=== PATIENT | female | born 1955 | race Two or more races ===

== ENCOUNTER 2018-02-17 07:29 | Outpatient (CLI) | payer OTHER | END 2018-02-17 07:40 | disposition home or self-care (01) | LOC: LAB 07:29 | DX: I10 Essential (primary) hypertension (principal); R82.79 Other abnormal findings on microbiological examination of urine; E11.9 Type 2 diabetes mellitus without complications; E03.9 Hypothyroidism, unspecified; E78.2 Mixed hyperlipidemia; N39.0 Urinary tract infection, site not specified; M81.0 Age-related osteoporosis without current pathological fracture ==

== ENCOUNTER 2019-06-17 06:43 | Outpatient (CLI) | payer OTHER | END 2019-06-17 07:14 | disposition home or self-care (01) | LOC: LAB 06:43 | DX: I10 Essential (primary) hypertension (principal); E11.9 Type 2 diabetes mellitus without complications; E03.8 Other specified hypothyroidism; E78.2 Mixed hyperlipidemia ==

== ENCOUNTER 2019-06-17 07:47 | Outpatient (CLI) | payer OTHER | END 2019-06-17 07:56 | disposition home or self-care (01) | LOC: MAMO-SONO 07:47 | DX: N63.11 Unspecified lump in the right breast, upper outer quadrant (principal) ==

== ENCOUNTER 2019-06-18 13:11 | Outpatient (CLI) | payer OTHER | END 2019-06-18 13:33 | disposition home or self-care (01) | LOC: NUCLEAR 13:11 | DX: M81.0 Age-related osteoporosis without current pathological fracture (principal) ==

== ENCOUNTER → 2019-06-30 15:39 | Outpatient (CLI) | payer OTHER | END | disposition home or self-care (01) | LOC: LAB 15:39 | DX: M81.0 Age-related osteoporosis without current pathological fracture (principal); M19.91 Primary osteoarthritis, unspecified site ==

== ENCOUNTER 2023-12-31 08:49 | Outpatient (CLI) | payer OTHER ==
[2023-12-31 10:43] LABS: HEMATOCRIT 36.4 % (36.0-45.00); HEMOGLOBIN 12.3 g/dL (12.0-15.00); MEAN CELL VOLUME 83.1 fL (80.00-100.00); MEAN CORPUSCULAR HEMOGLOBIN 28.1 pg (27.00-32.0); MEAN CORPUSCULAR HGB CONC 33.8 g/dl (32.0-36.0); PLATELET COUNT 262 K/uL (150-450); RED BLOOD COUNT 4.38 M/uL (4.00-6.00); RED CELL DISTRIBUTION WIDTH 14.4 % (11.5-14.5)
[2023-12-31 10:50] LABS: PH,URINE 5.5 (5.0-8.0); URINE APPEARANCE Clear; URINE BILIRRUBIN Negative (NEGATIVE); URINE BLOOD Negative; URINE COLOR Yellow; URINE GLUCOSE Negative (NEGATIVE); URINE LEUKOCYTE Trace; URINE NITRATE Negative; URINE PROTEIN Negative (NEGATIVE)
[2023-12-31 10:54] LABS: URINE BACTERIA 256.9 uL (0.0-1933); URINE EPITHELIAL CELLS 25.9 uL (0.0-38.8); URINE WBC 15.4 uL (0.0-23.2)
[2023-12-31 11:20] LABS: ALBUMIN 3.9 gm/dL (3.4-5.0); BILIRUBIN TOTAL 1.07 mg/dL (0.3-1.2); CALCIUM 9.4 mg/dL (8.5-10.1); CHOL HDL RATIO 3.6 (0-5.0); CREATININE SERUM 0.82 mg/dL (0.55-1.02); GFR 69.32; GLOBULINA 3.6 G/DL (2.4-3.5); POTASSIUM 4.38 mEq/L (3.5-5.1); T4 TOTAL 10.85 UG/DL (4.8-13.9); TOTAL PROTEIN 7.5 gm/dL (6.4-8.2); TSH 0.992 uIU/mL (0.358-3.74)
[2023-12-31 13:23] LABS: T3 TOTAL 0.955 ng/ml (0.846-2.02); VITAMIN D3 25 HYDROXY 81.72 ng/ml (30-120)
[2024-01-01 07:12] LABS: INSULIN LEVELS 7.8 uIU/mL (2.6-24.9)
[2024-01-01 09:07] LABS: CA 125 13.8 U/mL (0.0-38.1); CA 19-9 < 2 U/mL (0-35)
== END 2023-12-31 08:50 | disposition home or self-care (01) ==
LOC: LAB 08:49
PROVIDERS: ATTEND Internal Medicine Cardiovascular Disease
DX: I10 Essential (primary) hypertension (principal); E11.9 Type 2 diabetes mellitus without complications; E03.9 Hypothyroidism, unspecified; E78.2 Mixed hyperlipidemia; E55.9 Vitamin D deficiency, unspecified; Z12.11 Encounter for screening for malignant neoplasm of colon; D64.0 Hereditary sideroblastic anemia; K85.90 Acute pancreatitis without necrosis or infection, unspecified; Z12.31 Encounter for screening mammogram for malignant neoplasm of breast

== ENCOUNTER 2024-01-03 07:05 | Outpatient (CLI) | payer OTHER ==
[2024-01-03 09:40] LABS: ob NEGATIVE (NEGATIVE)
== END 2024-01-03 07:06 | disposition home or self-care (01) ==
LOC: LAB 07:05
PROVIDERS: ATTEND Internal Medicine Cardiovascular Disease
DX: I10 Essential (primary) hypertension (principal); E11.9 Type 2 diabetes mellitus without complications; E03.9 Hypothyroidism, unspecified; E78.2 Mixed hyperlipidemia; E55.9 Vitamin D deficiency, unspecified; Z12.11 Encounter for screening for malignant neoplasm of colon; D64.0 Hereditary sideroblastic anemia; K85.90 Acute pancreatitis without necrosis or infection, unspecified

== ENCOUNTER 2024-01-03 09:53 | Outpatient (CLI) | payer OTHER | END 2024-01-03 10:02 | disposition home or self-care (01) | LOC: MAMO-SONO 09:53 | PROVIDERS: ATTEND Internal Medicine Cardiovascular Disease | DX: N60.11 Diffuse cystic mastopathy of right breast (principal); N60.12 Diffuse cystic mastopathy of left breast; Z12.31 Encounter for screening mammogram for malignant neoplasm of breast ==

== ENCOUNTER → 2024-04-14 08:42 | Outpatient (CLI) | payer OTHER ==
[2024-04-14 09:43] LABS: HEMATOCRIT 36.7 % (36.0-45.00); HEMOGLOBIN 12.4 g/dL (12.0-15.00); MEAN CELL VOLUME 84.1 fL (80.00-100.00); MEAN CORPUSCULAR HEMOGLOBIN 28.4 pg (27.00-32.0); MEAN CORPUSCULAR HGB CONC 33.8 g/dl (32.0-36.0); PLATELET COUNT 336 K/uL (150-450); RED BLOOD COUNT 4.36 M/uL (4.00-6.00); RED CELL DISTRIBUTION WIDTH 14.6 % (11.5-14.5)
[2024-04-14 10:04] LABS: PH,URINE 5.5 (5.0-8.0); URINE APPEARANCE Cloudy; URINE BILIRRUBIN Negative (NEGATIVE); URINE BLOOD Negative; URINE COLOR Dark Yellow; URINE GLUCOSE Negative (NEGATIVE); URINE LEUKOCYTE Small; URINE NITRATE Negative; URINE PROTEIN 30 (NEGATIVE)
[2024-04-14 10:08] LABS: URINE BACTERIA 4729.9 uL (0.0-1933); URINE EPITHELIAL CELLS 114.7 uL (0.0-38.8); URINE RBC 3.6 uL (0.0-20.8)
[2024-04-14 10:09] LABS: MYCOPLASMA PNEUMONIAE IGM NON REACTIVE (NO REACTIVE)
[2024-04-14 10:25] LABS: URINE MUCUS HEAVY
[2024-04-14 10:27] LABS: CALCIUM 9.4 mg/dL (8.5-10.1); CREATININE SERUM 0.79 mg/dL (0.55-1.02); GFR 72.37; POTASSIUM 4.18 mEq/L (3.5-5.1)
== END | disposition home or self-care (01) ==
LOC: LAB 08:42
PROVIDERS: ATTEND Internal Medicine Cardiovascular Disease
DX: E11.9 Type 2 diabetes mellitus without complications (principal); E78.2 Mixed hyperlipidemia; I10 Essential (primary) hypertension; J11.1 Influenza due to unidentified influenza virus with other respiratory manifestations; A49.3 Mycoplasma infection, unspecified site; Z20.822 Contact with and (suspected) exposure to COVID-19

== ENCOUNTER 2024-08-11 06:15 | Outpatient (CLI) | payer OTHER ==
[2024-08-11 07:00] LABS: PH,URINE 6.5 (5.0-8.0); URINE APPEARANCE Clear; URINE BILIRRUBIN Negative (NEGATIVE); URINE BLOOD Negative; URINE COLOR Yellow; URINE GLUCOSE Negative (NEGATIVE); URINE KETONE Negative (NEGATIVE); URINE LEUKOCYTE Large; URINE NITRATE Negative; URINE PROTEIN Trace (NEGATIVE)
[2024-08-11 07:02] LABS: URINE BACTERIA 588.3 uL (0.0-1933); URINE EPITHELIAL CELLS 48.6 uL (0.0-38.8)
[2024-08-11 07:14] LABS: HEMATOCRIT 33.2 % (36.0-45.00); HEMOGLOBIN 11.4 g/dL (12.0-15.00); MEAN CELL VOLUME 82.2 fL (80.00-100.00); MEAN CORPUSCULAR HEMOGLOBIN 28.1 pg (27.00-32.0); MEAN CORPUSCULAR HGB CONC 34.2 g/dl (32.0-36.0); PLATELET COUNT 286 K/uL (150-450); RED BLOOD COUNT 4.04 M/uL (4.00-6.00); RED CELL DISTRIBUTION WIDTH 14.7 % (11.5-14.5)
[2024-08-11 07:39] LABS: URINE CAST 0.15 uL (0.0-1.40); URINE RBC 1.5 uL (0.0-20.8)
[2024-08-11 08:06] LABS: ALBUMIN 3.4 gm/dL (3.4-5.0); BILIRUBIN TOTAL 0.63 mg/dL (0.3-1.2); CALCIUM 8.9 mg/dL (8.5-10.1); CHOL HDL RATIO 3.1 (0-5.0); CREATININE SERUM 0.92 mg/dL (0.55-1.02); GFR 60.7; GLOBULINA 3.4 G/DL (2.4-3.5); POTASSIUM 4.25 mEq/L (3.5-5.1); T4 TOTAL 9.29 UG/DL (4.8-13.9); TOTAL PROTEIN 6.8 gm/dL (6.4-8.2); TSH 2.13 uIU/mL (0.358-3.74)
[2024-08-11 13:37] LABS: T3 TOTAL 0.987 ng/ml (0.846-2.02); VITAMIN D3 25 HYDROXY 82.07 ng/ml (30-120)
== END 2024-08-11 06:16 | disposition home or self-care (01) ==
LOC: RAD 06:15
PROVIDERS: ATTEND Internal Medicine Cardiovascular Disease
DX: J44.9 Chronic obstructive pulmonary disease, unspecified (principal); E03.9 Hypothyroidism, unspecified; E11.9 Type 2 diabetes mellitus without complications; I10 Essential (primary) hypertension; E78.2 Mixed hyperlipidemia; D64.9 Anemia, unspecified; Z12.11 Encounter for screening for malignant neoplasm of colon; E55.9 Vitamin D deficiency, unspecified; M81.0 Age-related osteoporosis without current pathological fracture

== ENCOUNTER 2024-08-14 07:01 | Outpatient (CLI) | payer OTHER ==
[2024-08-14 09:00] LABS: ob NEGATIVE (NEGATIVE)
== END 2024-08-14 07:10 | disposition home or self-care (01) ==
LOC: LAB 07:01
PROVIDERS: ATTEND Internal Medicine Cardiovascular Disease
DX: E11.9 Type 2 diabetes mellitus without complications (principal); I10 Essential (primary) hypertension; E03.9 Hypothyroidism, unspecified; E78.2 Mixed hyperlipidemia; D64.0 Hereditary sideroblastic anemia; Z12.11 Encounter for screening for malignant neoplasm of colon; E55.9 Vitamin D deficiency, unspecified; M81.0 Age-related osteoporosis without current pathological fracture

== ENCOUNTER 2024-12-01 09:47 | Outpatient (CLI) | payer OTHER ==
[2024-12-01 10:49] LABS: HEMATOCRIT 32.7 % (36.0-45.00); HEMOGLOBIN 10.8 g/dL (12.0-15.00); MEAN CELL VOLUME 79.5 fL (80.00-100.00); MEAN CORPUSCULAR HEMOGLOBIN 26.4 pg (27.00-32.0); MEAN CORPUSCULAR HGB CONC 33.2 g/dl (32.0-36.0); PLATELET COUNT 288 K/uL (150-450); RED BLOOD COUNT 4.12 M/uL (4.00-6.00); RED CELL DISTRIBUTION WIDTH 16.5 % (11.5-14.5)
[2024-12-01 11:01] LABS: PH,URINE 7.5 (5.0-8.0); URINE APPEARANCE Clear; URINE BILIRRUBIN Negative (NEGATIVE); URINE BLOOD Negative; URINE COLOR Yellow; URINE GLUCOSE Negative (NEGATIVE); URINE KETONE Negative (NEGATIVE); URINE LEUKOCYTE Moderate; URINE NITRATE Negative; URINE PROTEIN Trace (NEGATIVE)
[2024-12-01 11:07] LABS: URINE BACTERIA 1882.2 uL (0.0-1933); URINE EPITHELIAL CELLS 84.6 uL (0.0-38.8); URINE RBC 2.3 uL (0.0-20.8)
[2024-12-01 12:00] LABS: ALBUMIN 3.5 gm/dL (3.4-5.0); BILIRUBIN TOTAL 0.98 mg/dL (0.3-1.2); CALCIUM 8.5 mg/dL (8.5-10.1); CHOL HDL RATIO 3.4 (0-5.0); CREATININE SERUM 0.75 mg/dL (0.55-1.02); GFR 76.62; GLOBULINA 3.3 G/DL (2.4-3.5); POTASSIUM 3.69 mEq/L (3.5-5.1); T4 TOTAL 8.95 UG/DL (4.8-13.9); TOTAL PROTEIN 6.8 gm/dL (6.4-8.2); TSH 1.36 uIU/mL (0.358-3.74)
[2024-12-01 13:39] LABS: T3 TOTAL 0.848 ng/ml (0.846-2.02); VITAMIN D3 25 HYDROXY 62.03 ng/ml (30-120)
== END 2024-12-01 10:01 | disposition home or self-care (01) ==
LOC: LAB 09:47
PROVIDERS: ATTEND Internal Medicine Cardiovascular Disease
DX: E03.9 Hypothyroidism, unspecified (principal); E11.9 Type 2 diabetes mellitus without complications; I10 Essential (primary) hypertension; E78.2 Mixed hyperlipidemia; D64.0 Hereditary sideroblastic anemia; Z12.11 Encounter for screening for malignant neoplasm of colon; E55.9 Vitamin D deficiency, unspecified; M81.0 Age-related osteoporosis without current pathological fracture

== ENCOUNTER 2024-12-02 07:07 | Outpatient (CLI) | payer OTHER ==
[2024-12-02 08:44] LABS: ob NEGATIVE (NEGATIVE)
== END 2024-12-02 07:08 | disposition home or self-care (01) ==
LOC: LAB 07:07
PROVIDERS: ATTEND Internal Medicine Cardiovascular Disease
DX: E11.9 Type 2 diabetes mellitus without complications (principal); I10 Essential (primary) hypertension; E03.9 Hypothyroidism, unspecified; E78.2 Mixed hyperlipidemia; D64.0 Hereditary sideroblastic anemia; Z12.11 Encounter for screening for malignant neoplasm of colon; E55.9 Vitamin D deficiency, unspecified; M81.0 Age-related osteoporosis without current pathological fracture

== ENCOUNTER 2025-04-28 09:02 | Outpatient (CLI) | payer OTHER ==
[2025-04-28 09:39] LABS: URINE APPEARANCE Clear; URINE BILIRRUBIN Negative (NEGATIVE); URINE BLOOD Negative; URINE COLOR Yellow; URINE GLUCOSE Negative (NEGATIVE); URINE KETONE Trace (NEGATIVE); URINE LEUKOCYTE Small; URINE NITRATE Negative; URINE PROTEIN Trace (NEGATIVE); URINE UROBILINOGEN 1.0 E.U./dl
[2025-04-28 09:43] LABS: URINE BACTERIA 197.9 uL (0.0-1933); URINE EPITHELIAL CELLS 44.1 uL (0.0-38.8); URINE RBC 2.7 uL (0.0-20.8); URINE WBC 12.7 uL (0.0-23.2)
[2025-04-28 09:45] LABS: URINE CAST 0.00 uL (0.0-1.40)
[2025-04-28 10:44] LABS: BUN CREA RATIO 22.0 (7.0-25.0); CHOL HDL RATIO 3.4 (0-5.0); CREATININE SERUM 0.72 mg/dL (0.55-1.02); GFR 80.31; GLUCOSE FASTING 103.0 mg/dL (65-100); HDL 67.0 mg/dl (40-60); LDL 143.0 mg/dl (0-130); OSMOLALITY SERUM 281.0 MOSM/KG (275-295); T4 TOTAL 8.83 UG/DL (4.8-13.9); TSH 1.97 uIU/mL (0.358-3.74); VLDL 16.0 (0-39)
[2025-04-28 11:31] LABS: BASO % 0.9 % (0.1-1.2); EOS # 0.13 (0.04-0.54); EOS % 1.9 % (0.7-7.0); LYMPH # 1.34 (1.18-3.74); LYMPH % 20.0 % (19.3-53.1); MEAN PLATELET VOLUME 11.30 fl (9.4-12.4); MONO # 0.41 (0.24-0.82); MONO % 6.1 % (4.7-12.5); NEUT # 4.74 (1.56-6.13); NEUT % 71.0 % (34.0-71.1); RED CELL DISTRIBUTION WIDTH 15.1 % (11.6-14.4)
== END 2025-04-28 09:05 | disposition home or self-care (01) ==
LOC: LAB 09:02
PROVIDERS: ATTEND Internal Medicine Cardiovascular Disease
DX: E11.9 Type 2 diabetes mellitus without complications (principal); I10 Essential (primary) hypertension; E03.9 Hypothyroidism, unspecified; E78.2 Mixed hyperlipidemia